=== PATIENT | male | born 1965 | race African-American/Black ===

== ENCOUNTER 2016-09-14 09:29 | Inpatient (IN) | payer OTHER ==
[2016-09-14 10:33] VITALS: BMI 26.4
--- NOTE | 2016-09-14 13:01 | HP ---
COWS - Scale Resting Pulse: 0= [place] 80 or Below Sweatin= Chills/Flushing Restless Observation: 3= Extraneous Movement Pupil Size: 2= Moderately Dilated Bone or Joint Aches: 4=Acute Joint/Muscle Pain Runny Nose/ Eye Tearin= Nasal Congestion GI Upset > 30mins: 1= Stomach Cramp Tremor Observation: 2= Slight Tremor Visible Yawning Observation: 2= >3x During Session Anxiety or Irritability: 2=Irritable/Anxious Goose Flesh Skin: 0=Smooth Skin COWS Score: 18 Admission ROS BHS - HPI Chief Complaint: DETOX TX FOR HEROIN DEPENDENCE Allergies/Adverse Reactions: Allergies Allergy/AdvReac Type Severity Reaction Status Date / Time PENICILIN Allergy Severe TREMORS Uncoded 09/14/16 11:20 History of Present Illness: 51 Y/O MALE WITH A HX OF HEROIN DEPENDENCE SEEKING DETOX TX Exam Limitations: No Limitations - Ebola screening Have you traveled outside of the country in the last 21 days: No Have you had contact with anyone from an Ebola affected area: No Have you been sick,other than usual withdrawal symptoms: No - Review of Systems Constitutional: Chills, Loss of Appetite, Night Sweats, Changes in sleep EENT: reports: Tearing, Nose Congestion, Dental Problems (MISSING TEETH/DECAY) Respiratory: reports: No Symptoms reported Cardiac: reports: No Symptoms Reported GI: reports: Constipated, Diarrhea, Nausea, Vomiting : reports: No Symptoms Reported Musculoskeletal: reports: Back Pain, Muscle Pain Integumentary: reports: No Symptoms Reported Neuro: reports: No Symptoms reported Endocrine: reports: No Symptoms Reported Hematology: reports: No Symptoms Reported Psychiatric: reports: Orientated x3, Agitated, Anxious, Depressed Other Systems: Reviewed and Negative Patient History - Patient Medical History Hx Anemia: No Hx Asthma: No Hx Chronic Obstructive Pulmonary Disease (COPD): No Hx Cardiac Disorders: No Hx Hypertension: No Hx Hypercholesterolemia: No HX Cerebrovascular Accident: No Hx Seizures: No Hx Diabetes: No Hx Gastrointestinal Disorders: No Hx Genitourinary Disorders: No Hx Sexually Transmitted Disorders: No Hx Renal Disease (ESRD): No Hx Thyroid Disease: No Hx Human Immunodeficiency Virus (HIV): No (NEGATIVE HX) Hx Hepatitis C: No Hx Depression: Yes (NO MED) Hx Suicide Attempt: No Hx Schizophrenia: No - Patient Surgical History Past Surgical History: No Hx Neurologic Surgery: No Hx Cataract Extraction: No Hx Cardiac Surgery: No Hx Lung Surgery: No Hx Breast Surgery: No Hx Breast Biopsy: No Hx Abdominal Surgery: No Hx Appendectomy: No Hx Cholecystectomy: No Hx Genitourinary Surgery: No Hx Orthopedic Surgery: No Anesthesia Reaction: No - PPD History Previous Implant?: Yes Documented Results: Negative w/o proof PPD to be Administered?: Yes - Reproductive History Patient is a Female of Child Bearing Age (11 -55 yrs old): No (MALE) - Smoking Cessation Smoking history: Current every day smoker Have you smoked in the past 12 months: Yes Aproximately how many cigarettes per day: 10 Hx Chewing Tobacco Use: No Initiated information on smoking cessation: Yes 'Breaking Loose' booklet given: 09/14/16 - Substance & Tx. History Hx Substance Use: Yes (HEROIN/COCAINE/MARIJUANA) Substance Use Type: Cocaine, Heroin, Marijuana Hx Substance Use Treatment: Yes - Substances Abused Heroin Route: Inhalation Frequency: Daily Amount used: 8-10 bags Age of first use: 31 Date of Last Use: 09/14/16 Crack Route: Smoking Frequency: Daily Amount used: $100 Age of first use: 18 Date of Last Use: 09/13/16 Marijuana Route: Smoking Frequency: Daily Amount used: $25 Age of first use: 18 Date of Last Use: 09/13/16 Family Disease History - Family Disease History Family History: Denies Admission Physical Exam [facility] - Vital Signs Vital Signs: Vital Signs - 24 hr 09/14/16 10:32 Temperature 96.8 F L Pulse Rate 65 Respiratory 18 Rate Blood Pressure 114/70 - Physical General Appearance: Yes: Moderate Distress, Irritable, Anxious HEENTM: Yes: EOMI, Normocephalic, ALONZO, Pharynx Normal Respiratory: Yes: Chest Non-Tender, Lungs Clear, Normal Breath Sounds, No Respiratory Distress Neck: Yes: Supple, Trachea in good position Breast: Yes: Breast Exam Deferred Cardiology: Yes: Regular Rhythm, Regular Rate, S1, S2 Abdominal: Yes: Normal Bowel Sounds, Non Tender, Soft Genitourinary: Yes: Other (N/C) Back: Yes: Within Normal Limits Musculoskeletal: Yes: full range of Motion, Gait Steady Extremities: Yes: Normal Range of Motion, Non-Tender Neurological: Yes: service desk specialist II-XII NML intact, Fully Oriented, Alert, Motor Strength 5/5 Integumentary: Yes: Dry, Warm Lymphatic: Yes: Within Normal Limits - Diagnostic (1) Opioid dependence with withdrawal Current Visit: Yes Status: Acute (2) Cocaine dependence with withdrawal Current Visit: Yes Status: Acute (3) Cannabis dependence, uncomplicated Current Visit: Yes Status: Acute (4) History of depression Current Visit: Yes Status: Chronic Cleared for Admission [facility] - Detox or Rehab [facility] Level of Care: Medically Managed Detox Regimen/Protocol: Methadone [facility] Breath Alcohol Content Breath Alcohol Content: 0 Urine Drug Screen - Results Drug Screen Negative: No Urine Drug Screen Results: THC-Marijuana, JOSIE-Cocaine, OPI-Opiates
[2016-09-14] MEDS ORDERED: MAG HYDROX/AL HYDROX/SIMETH 30 ML UNIT-DOSE CUP PO PRN (13:16)
[2016-09-14] MEDS ORDERED: NICOTINE POLACRILEX 2 MG GUM BUC PRN (13:16)
[2016-09-14] MEDS ORDERED: MAGNESIUM CITRATE 300 ML BOTTLE PO PRN (13:16)
[2016-09-14] MEDS ORDERED: diazePAM 5 MG TABLET PO PRN (13:16)
[2016-09-14] MEDS ORDERED: hydrOXYzine PAMOATE 25 MG CAPSULE (FP) PO PRN (13:16)
[2016-09-14] MEDS ORDERED: LOPERAMIDE HCL 2 MG CAPSULE PO PRN (13:16)
[2016-09-14] MEDS ORDERED: MAGNESIUM HYDROX 2400MG/30ML ORAL SUSPENSION 30 ML CUP PO PRN (13:16)
[2016-09-14] MEDS ORDERED: P-EPHED 60MG/TRIPROLIDI 2.5MG TABLET PO PRN (13:16)
[2016-09-14] MEDS ORDERED: guaiFENesin/D-METHORPHAN HB 10 ML UNIT-DOSE CUPS PO PRN (13:16)
[2016-09-14] MEDS ORDERED: MENTHOL/PHENOL 1 EACH UD MM PRN (13:16)
[2016-09-14] MEDS ORDERED: diphenhydrAMINE HCL 50 MG CAPSULE PO PRN (13:16)
[2016-09-14] MEDS ORDERED: METHADONE HCL 10 MG TABLET (FOR DETOX USE ONLY) PO ONE ×2 (14:23→23:00)
[2016-09-14] MEDS: NICOTINE 14 MG/24 HOURS TOPICAL PATCH TD SCH (15:02)
[2016-09-14 15:09] LABS: HIV 1 & 2 AB NEGATIVE; HIV 1 AGp24 NEGATIVE
[2016-09-14] MEDS: IBUPROFEN 400 MG TABLET (FP) PO PRN (17:07)
[2016-09-14] MEDS: ACETAMINOPHEN 325 MG TABLET (FP) PO PRN (21:06)
[2016-09-14 22:33] LABS: URINE APPEARANCE CLEAR; URINE BILIRUBIN NEGATIVE (NEGATIVE); URINE BLOOD NEGATIVE (NEGATIVE); URINE COLOR YELLOW; URINE GLUCOSE (UA) NEGATIVE (NEGATIVE); URINE KETONE NEGATIVE (NEGATIVE); URINE LEUK ESTERASE NEGATIVE (NEGATIVE); URINE NITRITE NEGATIVE (NEGATIVE); URINE PROTEIN NEGATIVE (NEGATIVE); URINE UROBILINOGEN NEGATIVE E.U./dl (0.2-1.0)
[2016-09-14] MEDS: THIAMINE HCL 100 MG TABLET (FP) PO SCH (22:50)
[2016-09-15] MEDS: IBUPROFEN 400 MG TABLET (FP) PO PRN (06:04)
[2016-09-15] MEDS ORDERED: METHADONE HCL 10 MG TABLET (FOR DETOX USE ONLY) PO ONE (10:00)
--- NOTE | 2016-09-15 10:10 | EKG ---
Test Reason : Blood Pressure : / mmHG Vent. Rate : 066 BPM Atrial Rate : 066 BPM P-R Int : 148 ms QRS Dur : 090 ms QT Int : 392 ms P-R-T Axes : 057 060 051 degrees QTc Int : 410 ms NORMAL SINUS RHYTHM NORMAL ECG NO PREVIOUS ECGS AVAILABLE Confirmed by YOSEF SAHU MD ([id number]) on 09/15/2016 10:10:14 AM Referred By: Confirmed By:YOSEF SAHU MD
[2016-09-15] MEDS: PRENATAL VITAMINS W/ FOLIC ACID TABLET (FP) PO SCH (10:31)
[2016-09-15] MEDS: NICOTINE 14 MG/24 HOURS TOPICAL PATCH TD SCH (10:32)
[2016-09-15 10:34] LABS: MCH 31.2 pg (25.7-33.7); MEAN CELL VOLUME 94.7 fl (80-96); MEAN PLT VOLUME 8.8 fl (7.5-11.1); PLATELET COUNT 303 K/MM3 (134-434); RDW 15.5 % (11.9-15.9)
[2016-09-15 10:59] LABS: SICKLE CELL SCREEN NEGATIVE (NEGATIVE)
[2016-09-15 11:21] LABS: ALBUMIN 2.9 g/dl (3.4-5.0); ALK PHOS 67 U/L (45-117); ANION GAP 8 (8-16); BILIRUBIN,TOTAL 0.1 mg/dL (0.2-1.0); CALCIUM 8.4 mg/dL (8.5-10.1); CO2 25 mmol/L (21-32); COCKROFT - GAULT 121.02; CREATININE 0.9 mg/dL (0.7-1.3); GLUCOSE,RANDOM 74 mg/dL (74-106); SGOT/AST 17 U/L (15-37); SGPT/ALT 18 U/L (12-78); TOT PROT 6.4 g/dl (6.4-8.2)
--- NOTE | 2016-09-15 12:34 | CONSULT ---
[facility] Psychiatric Consult - Data Date of interview: 09/15/16 Admission source: [facility] Identifying data: This is 51 years old male with no psychiatric hospitalization history nintoxicAted with: Heroin Cocaine and Cannabis Substance Abuse History: - Substances Abused. Heroin. Route: Inhalation. Frequency: Daily. Amount used: 8-10 bags. Age of first use: 31. Date of Last Use: 09/14/16. Crack. Route: Smoking. Frequency: Daily. Amount used: $ 100. Age of first use: 18. Date of Last Use: 09/13/16. Marijuana. Route: Smoking. Frequency: Daily. Amount used: $25. Age of first use: 18. Date of Last Use: 09/13/16 Medical History: Denies Psychiatric History: Patient denies past psychiatric history Physical/Sexual Abuse/Trauma History: Denies Additional Comment: Observation. Detox Unit Care Protocol Mental Status Exam - Mental Status Exam Alert and Oriented to: Person Cognitive Function: Fair Patient Appearance: Well Groomed Mood: Apprehensive Affect: Mood Congruent Patient Behavior: Cooperative Speech Pattern: Appropriate Voice Loudness: Normal Thought Process: Goal Oriented Thought Disorder: Being Controlled Hallucinations: Denies Suicidal Ideation: Denies Homicidal Ideation: Denies Insight/Judgement: Fair Sleep: Difficulty falling asleep Appetite: Fair Muscle strength/Tone: Normal Gait/Station: Normal Additional Comments: Observation. Detox Unit Care Protocol Psychiatric Findings - Problem List ([place] 1, 2,3) (1) Cannabis dependence, uncomplicated Current Visit: Yes Status: Acute (2) Cocaine dependence with withdrawal Current Visit: Yes Status: Acute (3) Opioid dependence with withdrawal Current Visit: Yes Status: Acute (4) Drug-induced mood disorder Current Visit: Yes Status: Suspected - Initial Treatment Plan Initial Treatment Plan: Observation. Detox Unit Care Protocol
--- NOTE | 2016-09-15 14:09 | PN ---
S COWS - Scale Resting Pulse: 0= [place] 80 or Below Sweatin=Flushed/Facial Moisture Restless Observation: 1= Difficult to Sit Still Pupil Size: 0= Normal to Room Light Bone or Joint Aches: 2= Severe Diffuse Aches Runny Nose/ Eye Tearin= Runny Nose/Eyes GI Upset > 30mins: 2= Nausea/Diarrhea Tremor Observation of Outstretched Hands: 2= Slight Tremor Visible Yawning Observation: 0= None Anxiety or Irritability: 2=Irritable/Anxious Goose Flesh Skin: 3=Piloerection COWS Score: 16 BHS Progress Note (SOAP) Subjective: sweats, shakes, abdominal cramps Objective: 09/15/16 14:08 Vital Signs - 8 hr 09/15/16 09/15/16 06:48 09:49 Temperature 96.8 F L 97.2 F L Pulse Rate 64 68 Respiratory 18 18 Rate Blood Pressure 135/78 110/76 Laboratory Last Values WBC 7.0 K/mm3 (4.0-10.0) 09/15/16 06:16 RBC 3.98 M/mm3 (4.00-5.60) L 09/15/16 06:16 Hgb 12.4 GM/dL (11.7-16.9) 09/15/16 06:16 Hct 37.7 % (35.4-49) 09/15/16 06:16 MCV 94.7 fl (80-96) 09/15/16 06:16 MCHC 33.0 g/dl (32.0-35.9) 09/15/16 06:16 RDW 15.5 % (11.9-15.9) 09/15/16 06:16 Plt Count 303 K/MM3 (134-434) 09/15/16 06:16 MPV 8.8 fl (7.5-11.1) 09/15/16 06:16 Sickle Cell Screen Negative (NEGATIVE) 09/15/16 06:16 Sodium 143 mmol/L (136-145) 09/15/16 06:16 Potassium 4.4 mmol/L (3.5-5.1) 09/15/16 06:16 Chloride 110 mmol/L (98-107) H 09/15/16 06:16 Carbon Dioxide 25 mmol/L (21-32) 09/15/16 06:16 Anion Gap 8 (8-16) 09/15/16 06:16 BUN 16 mg/dL (7-18) 09/15/16 06:16 Creatinine 0.9 mg/dL (0.7-1.3) 09/15/16 06:16 Creat Clearance w eGFR > 60 (>60) 09/15/16 06:16 Random Glucose 74 mg/dL (74-106) 09/15/16 06:16 Calcium 8.4 mg/dL (8.5-10.1) L 09/15/16 06:16 Total Bilirubin 0.1 mg/dL (0.2-1.0) L 09/15/16 06:16 AST 17 U/L (15-37) 09/15/16 06:16 ALT 18 U/L (12-78) 09/15/16 06:16 Alkaline Phosphatase 67 U/L (45-117) 09/15/16 06:16 Total Protein 6.4 g/dl (6.4-8.2) 09/15/16 06:16 Albumin 2.9 g/dl (3.4-5.0) L 09/15/16 06:16 Urine Color Yellow 09/14/16 13:00 Urine Appearance Clear 09/14/16 13:00 Urine pH 5.0 (5.0-8.0) 09/14/16 13:00 Ur Specific [place] 1.023 (1.001-1.035) 09/14/16 13:00 Urine Protein Negative (NEGATIVE) 09/14/16 13:00 Urine Glucose (UA) Negative (NEGATIVE) 09/14/16 13:00 Urine Ketones Negative (NEGATIVE) 09/14/16 13:00 Urine Blood Negative (NEGATIVE) 09/14/16 13:00 Urine Nitrite Negative (NEGATIVE) 09/14/16 13:00 Urine Bilirubin Negative (NEGATIVE) 09/14/16 13:00 Urine Urobilinogen Negative E.U./dl (0.2-1.0) 09/14/16 13:00 Ur Leukocyte Esterase Negative (NEGATIVE) 09/14/16 13:00 RPR Titer Nonreactive (NONREACTIVE) 09/15/16 06:16 HIV 1&2 Antibody Screen Negative 09/14/16 12:10 HIV P24 Antigen Negative 09/14/16 12:10 labs noted Assessment: 09/15/16 14:09 withdrawal sx Plan: continue detox
--- NOTE | 2016-09-15 19:50 | DS ---
[facility] Detox Discharge Summary Admission Date: 09/14/16 Discharge Date: 09/15/16 - History Present History: Cannabis Dependence, Opioid Dependence - Physical Exam Results Vital Signs: Vital Signs Temperature 98.1 F 09/15/16 14:59 Pulse Rate 62 09/15/16 14:59 Respiratory Rate 18 09/15/16 14:59 Blood Pressure 119/70 09/15/16 14:59 O2 Sat by Pulse Oximetry (%) Pertinent Admission Physical Exam Findings: withdrawal sx - Medication Discharge Medications: Ambulatory Orders NK [No Known Home Medication] 09/14/16 - Diagnosis (1) Cannabis dependence, uncomplicated Current Visit: Yes Status: Acute (2) Cocaine dependence with withdrawal Current Visit: Yes Status: Acute (3) Opioid dependence with withdrawal Current Visit: Yes Status: Acute (4) History of depression Current Visit: Yes Status: Chronic - AMA Did Patient Leave Against Medical Advice: No (Administrative d/c, destroyed property (bed))
[2016-09-15] MEDS: THIAMINE HCL 100 MG TABLET (FP) PO SCH (23:15)
[2016-09-16] MEDS ORDERED: METHADONE HCL 5 MG TABLET (FOR DETOX USE ONLY) PO ONE (10:00)
[2016-09-16] MEDS: PRENATAL VITAMINS W/ FOLIC ACID TABLET (FP) PO SCH (10:31)
[2016-09-16] MEDS: NICOTINE 14 MG/24 HOURS TOPICAL PATCH TD SCH (10:32)
[2016-09-16 11:04] LABS: URINE APPEARANCE CLEAR; URINE BILIRUBIN NEGATIVE (NEGATIVE); URINE BLOOD NEGATIVE (NEGATIVE); URINE COLOR STRAW; URINE GLUCOSE (UA) NEGATIVE (NEGATIVE); URINE KETONE NEGATIVE (NEGATIVE); URINE LEUK ESTERASE NEGATIVE (NEGATIVE); URINE NITRITE NEGATIVE (NEGATIVE); URINE PROTEIN NEGATIVE (NEGATIVE); URINE UROBILINOGEN NEGATIVE E.U./dl (0.2-1.0)
[2016-09-16] MEDS: ACETAMINOPHEN 325 MG TABLET (FP) PO PRN ×2 (11:35→23:00)
--- NOTE | 2016-09-16 16:22 | PN ---
BHS COWS - Scale Resting Pulse: 0= [place] 80 or Below Sweatin= Chills/Flushing Restless Observation: 3= Extraneous Movement Pupil Size: 0= Normal to Room Light Bone or Joint Aches: 2= Severe Diffuse Aches Runny Nose/ Eye Tearin= Runny Nose/Eyes GI Upset > 30mins: 1= Stomach Cramp Tremor Observation of Outstretched Hands: 0= None Yawning Observation: 1= 1-2x During Session Anxiety or Irritability: 2=Irritable/Anxious Goose Flesh Skin: 0=Smooth Skin COWS Score: 12 BHS Progress Note (SOAP) Subjective: Anxious, sweating, LBP, interrupted sleep Objective: 09/16/16 16:21 Laboratory Tests 09/14/16 09/14/16 09/15/16 12:10 13:00 06:16 WBC 7.0 RBC 3.98 L Hgb 12.4 Hct 37.7 MCV 94.7 MCHC 33.0 RDW 15.5 Plt Count 303 MPV 8.8 Sickle Cell Screen Negative Sodium Potassium Chloride Carbon Dioxide Anion Gap BUN Creatinine Creat Clearance w eGFR Random Glucose Calcium Total Bilirubin AST ALT Alkaline Phosphatase Total Protein Albumin Urine Color Yellow Urine Appearance Clear Urine pH 5.0 Ur Specific [place] 1.023 Urine Protein Negative Urine Glucose (UA) Negative Urine Ketones Negative Urine Blood Negative Urine Nitrite Negative Urine Bilirubin Negative Urine Urobilinogen Negative Ur Leukocyte Esterase Negative RPR Titer HIV 1&2 Antibody Screen Negative HIV P24 Antigen Negative 09/15/16 09/15/16 09/16/16 06:16 06:16 10:00 WBC RBC Hgb Hct MCV MCHC RDW Plt Count MPV Sickle Cell Screen Sodium 143 Potassium 4.4 Chloride 110 H Carbon Dioxide 25 Anion Gap 8 BUN 16 Creatinine 0.9 Creat Clearance w eGFR > 60 Random Glucose 74 Calcium 8.4 L Total Bilirubin 0.1 L AST 17 ALT 18 Alkaline Phosphatase 67 Total Protein 6.4 Albumin 2.9 L Urine Color Straw Urine Appearance Clear Urine pH 7.0 D Ur Specific [place] 1.011 Urine Protein Negative Urine Glucose (UA) Negative Urine Ketones Negative Urine Blood Negative Urine Nitrite Negative Urine Bilirubin Negative Urine Urobilinogen Negative Ur Leukocyte Esterase Negative RPR Titer Nonreactive HIV 1&2 Antibody Screen HIV P24 Antigen Labs noted Assessment: 09/16/16 16:21 Withdrawal symptoms Plan: Continue detox
[2016-09-16] MEDS: THIAMINE HCL 100 MG TABLET (FP) PO SCH (22:47)
[2016-09-17] MEDS ORDERED: METHADONE HCL 5 MG TABLET (FOR DETOX USE ONLY) PO ONE (10:00)
[2016-09-17] MEDS: PRENATAL VITAMINS W/ FOLIC ACID TABLET (FP) PO SCH (10:20)
[2016-09-17] MEDS: NICOTINE 14 MG/24 HOURS TOPICAL PATCH TD SCH (10:21)
[2016-09-17] MEDS: ACETAMINOPHEN 325 MG TABLET (FP) PO PRN (10:22)
--- NOTE | 2016-09-17 11:32 | PN ---
[facility] Progress Note Note: Psychiatry Attending's note : Approached by patient. Complaint : insomnia. Chart reviewed.Dr Russ's note is appreciated. Intervention : Education about virtues of sleep hygiene. Zolpidem 10 mg po hs.Side effects/benefits discussed. Mr Casper is made aware of risk of parasomnias. He agrees with this careplan.
--- NOTE | 2016-09-17 14:48 | PN ---
BHS Progress Note (SOAP) Subjective: Sweating,interrupted sleep,restless,tremors, Objective: 09/17/16 14:48 Vital Signs - 8 hr 09/17/16 09/17/16 09:54 14:14 Temperature 97.0 F L Pulse Rate 78 77 Respiratory 18 22 Rate Blood Pressure 99/65 110/68 Laboratory Last Values WBC 7.0 K/mm3 (4.0-10.0) 09/15/16 06:16 RBC 3.98 M/mm3 (4.00-5.60) L 09/15/16 06:16 Hgb 12.4 GM/dL (11.7-16.9) 09/15/16 06:16 Hct 37.7 % (35.4-49) 09/15/16 06:16 MCV 94.7 fl (80-96) 09/15/16 06:16 MCHC 33.0 g/dl (32.0-35.9) 09/15/16 06:16 RDW 15.5 % (11.9-15.9) 09/15/16 06:16 Plt Count 303 K/MM3 (134-434) 09/15/16 06:16 MPV 8.8 fl (7.5-11.1) 09/15/16 06:16 Sickle Cell Screen Negative (NEGATIVE) 09/15/16 06:16 Sodium 143 mmol/L (136-145) 09/15/16 06:16 Potassium 4.4 mmol/L (3.5-5.1) 09/15/16 06:16 Chloride 110 mmol/L (98-107) H 09/15/16 06:16 Carbon Dioxide 25 mmol/L (21-32) 09/15/16 06:16 Anion Gap 8 (8-16) 09/15/16 06:16 BUN 16 mg/dL (7-18) 09/15/16 06:16 Creatinine 0.9 mg/dL (0.7-1.3) 09/15/16 06:16 Creat Clearance w eGFR > 60 (>60) 09/15/16 06:16 Random Glucose 74 mg/dL (74-106) 09/15/16 06:16 Calcium 8.4 mg/dL (8.5-10.1) L 09/15/16 06:16 Total Bilirubin 0.1 mg/dL (0.2-1.0) L 09/15/16 06:16 AST 17 U/L (15-37) 09/15/16 06:16 ALT 18 U/L (12-78) 09/15/16 06:16 Alkaline Phosphatase 67 U/L (45-117) 09/15/16 06:16 Total Protein 6.4 g/dl (6.4-8.2) 09/15/16 06:16 Albumin 2.9 g/dl (3.4-5.0) L 09/15/16 06:16 Urine Color Straw 09/16/16 10:00 Urine Appearance Clear 09/16/16 10:00 Urine pH 7.0 (5.0-8.0) D 09/16/16 10:00 Ur Specific [place] 1.011 (1.001-1.035) 09/16/16 10:00 Urine Protein Negative (NEGATIVE) 09/16/16 10:00 Urine Glucose (UA) Negative (NEGATIVE) 09/16/16 10:00 Urine Ketones Negative (NEGATIVE) 09/16/16 10:00 Urine Blood Negative (NEGATIVE) 09/16/16 10:00 Urine Nitrite Negative (NEGATIVE) 09/16/16 10:00 Urine Bilirubin Negative (NEGATIVE) 09/16/16 10:00 Urine Urobilinogen Negative E.U./dl (0.2-1.0) 09/16/16 10:00 Ur Leukocyte Esterase Negative (NEGATIVE) 09/16/16 10:00 RPR Titer Nonreactive (NONREACTIVE) 09/15/16 06:16 HIV 1&2 Antibody Screen Negative 09/14/16 12:10 HIV P24 Antigen Negative 09/14/16 12:10 labs noted Assessment: 09/17/16 14:48 Withdrawal sx. Plan: Continue detox
[2016-09-17] MEDS: THIAMINE HCL 100 MG TABLET (FP) PO SCH (22:37)
[2016-09-17] MEDS: ZOLPIDEM TARTRATE 10 MG TABLET (PARK CARE ONLY) PO PRN (22:39)
[2016-09-18] MEDS ORDERED: METHADONE HCL 10 MG TABLET (FOR DETOX USE ONLY) PO ONE (10:00)
[2016-09-18] MEDS: PRENATAL VITAMINS W/ FOLIC ACID TABLET (FP) PO SCH (10:20)
[2016-09-18] MEDS: NICOTINE 14 MG/24 HOURS TOPICAL PATCH TD SCH (10:20)
--- NOTE | 2016-09-18 10:45 | DS ---
[facility] Detox Discharge Summary Admission Date: 09/14/16 - History Present History: Cannabis Dependence, Cocaine Dependence, Opioid Dependence Additional Comments: DECREASED ANXIETY,SWEATS,IRRITABILITY. - Physical Exam Results Vital Signs: Vital Signs Temperature 96.4 F L 09/18/16 09:34 Pulse Rate 79 09/18/16 09:34 Respiratory Rate 18 09/18/16 09:34 Blood Pressure 110/68 09/18/16 09:34 O2 Sat by Pulse Oximetry (%) - Medication Discharge Medications: Ambulatory Orders NK [No Known Home Medication] 09/14/16 - Diagnosis (1) Opioid dependence with withdrawal Current Visit: Yes Status: Acute (2) Cocaine dependence with withdrawal Current Visit: Yes Status: Acute (3) Cannabis dependence, uncomplicated Current Visit: Yes Status: Acute (4) History of depression Current Visit: Yes Status: Chronic
--- NOTE | 2016-09-18 10:46 | PN ---
BHS Progress Note (SOAP) Subjective: DECREASED ANXIETY,SWEATS,IRRITABILITY. Objective: 09/18/16 10:46 Vital Signs Temperature 96.4 F L 09/18/16 09:34 Pulse Rate 79 09/18/16 09:34 Respiratory Rate 18 09/18/16 09:34 Blood Pressure 110/68 09/18/16 09:34 O2 Sat by Pulse Oximetry (%) Assessment: 09/18/16 10:46 WITHDRAWAL SX Plan: CONTINUE DETOX
[2016-09-18] MEDS: HYDROCORTISONE 1% TOPICAL CREAM 30 GM TUBE TP SCH ×2 (14:38→22:23)
[2016-09-18] MEDS: BACITRACIN 0.9 GM PACKET TP SCH ×2 (14:38→22:23)
[2016-09-18] MEDS: THIAMINE HCL 100 MG TABLET (FP) PO SCH (22:22)
[2016-09-18] MEDS: ZOLPIDEM TARTRATE 10 MG TABLET (PARK CARE ONLY) PO PRN (22:24)
[2016-09-19] MEDS ORDERED: METHADONE HCL 5 MG TABLET (FOR DETOX USE ONLY) PO ONE (06:00)
[2016-09-19] MEDS: PRENATAL VITAMINS W/ FOLIC ACID TABLET (FP) PO SCH (10:27)
[2016-09-19] MEDS: HYDROCORTISONE 1% TOPICAL CREAM 30 GM TUBE TP SCH ×2 (10:27→22:53)
[2016-09-19] MEDS: NICOTINE 14 MG/24 HOURS TOPICAL PATCH TD SCH (10:27)
[2016-09-19] MEDS: BACITRACIN 0.9 GM PACKET TP SCH ×2 (10:28→22:50)
[2016-09-19] MEDS: THIAMINE HCL 100 MG TABLET (FP) PO SCH (22:50)
[2016-09-19] MEDS: ZOLPIDEM TARTRATE 10 MG TABLET (PARK CARE ONLY) PO PRN (22:51)
[2016-09-20 09:21] VITALS: BP 112/74; PULSE 91; TEMP 96.9
[2016-09-20] MEDS: BACITRACIN 0.9 GM PACKET TP SCH (09:42)
[2016-09-20] MEDS: NICOTINE 14 MG/24 HOURS TOPICAL PATCH TD SCH (09:43)
[2016-09-20] MEDS: PRENATAL VITAMINS W/ FOLIC ACID TABLET (FP) PO SCH (09:43)
[2016-09-20] MEDS: HYDROCORTISONE 1% TOPICAL CREAM 30 GM TUBE TP SCH (09:43)
--- NOTE | 2016-09-20 11:20 | PN ---
S Progress Note Note: PT'S REHAB ADMISSION AVAILABLE TODAY. BED WAS NOT AVAILABLE YESTERDAY SCHEDULED EARLIER.
--- NOTE | 2016-09-20 11:23 | DS ---
[facility] Detox Discharge Summary Admission Date: 09/14/16 Discharge Date: 09/20/16 - History Present History: Cannabis Dependence, Cocaine Dependence, Opioid Dependence Additional Comments: DETOX COMPLETED. ALERT O X 3. NAD. Pertinent Past History: DENIES PMHx DEPRESSION HX - Physical Exam Results Vital Signs: Vital Signs Temperature 96.9 F L 09/20/16 09:20 Pulse Rate 91 H 09/20/16 09:20 Respiratory Rate 20 09/20/16 09:20 Blood Pressure 112/74 09/20/16 09:20 O2 Sat by Pulse Oximetry (%) Pertinent Admission Physical Exam Findings: WITHDRAWAL SX Laboratory Last Values WBC 7.0 K/mm3 (4.0-10.0) 09/15/16 06:16 RBC 3.98 M/mm3 (4.00-5.60) L 09/15/16 06:16 Hgb 12.4 GM/dL (11.7-16.9) 09/15/16 06:16 Hct 37.7 % (35.4-49) 09/15/16 06:16 MCV 94.7 fl (80-96) 09/15/16 06:16 MCHC 33.0 g/dl (32.0-35.9) 09/15/16 06:16 RDW 15.5 % (11.9-15.9) 09/15/16 06:16 Plt Count 303 K/MM3 (134-434) 09/15/16 06:16 MPV 8.8 fl (7.5-11.1) 09/15/16 06:16 Sickle Cell Screen Negative (NEGATIVE) 09/15/16 06:16 Sodium 143 mmol/L (136-145) 09/15/16 06:16 Potassium 4.4 mmol/L (3.5-5.1) 09/15/16 06:16 Chloride 110 mmol/L (98-107) H 09/15/16 06:16 Carbon Dioxide 25 mmol/L (21-32) 09/15/16 06:16 Anion Gap 8 (8-16) 09/15/16 06:16 BUN 16 mg/dL (7-18) 09/15/16 06:16 Creatinine 0.9 mg/dL (0.7-1.3) 09/15/16 06:16 Creat Clearance w eGFR > 60 (>60) 09/15/16 06:16 Random Glucose 74 mg/dL (74-106) 09/15/16 06:16 Calcium 8.4 mg/dL (8.5-10.1) L 09/15/16 06:16 Total Bilirubin 0.1 mg/dL (0.2-1.0) L 09/15/16 06:16 AST 17 U/L (15-37) 09/15/16 06:16 ALT 18 U/L (12-78) 09/15/16 06:16 Alkaline Phosphatase 67 U/L (45-117) 09/15/16 06:16 Total Protein 6.4 g/dl (6.4-8.2) 09/15/16 06:16 Albumin 2.9 g/dl (3.4-5.0) L 09/15/16 06:16 Urine Color Straw 09/16/16 10:00 Urine Appearance Clear 09/16/16 10:00 Urine pH 7.0 (5.0-8.0) D 09/16/16 10:00 Ur Specific [place] 1.011 (1.001-1.035) 09/16/16 10:00 Urine Protein Negative (NEGATIVE) 09/16/16 10:00 Urine Glucose (UA) Negative (NEGATIVE) 09/16/16 10:00 Urine Ketones Negative (NEGATIVE) 09/16/16 10:00 Urine Blood Negative (NEGATIVE) 09/16/16 10:00 Urine Nitrite Negative (NEGATIVE) 09/16/16 10:00 Urine Bilirubin Negative (NEGATIVE) 09/16/16 10:00 Urine Urobilinogen Negative E.U./dl (0.2-1.0) 09/16/16 10:00 Ur Leukocyte Esterase Negative (NEGATIVE) 09/16/16 10:00 RPR Titer Nonreactive (NONREACTIVE) 09/15/16 06:16 HIV 1&2 Antibody Screen Negative 09/14/16 12:10 HIV P24 Antigen Negative 09/14/16 12:10 - Treatment Hospital Course: Detox Protocol Followed, Detoxed Safely, Responded well, Discharged Condition Good, Rehab Referral Accepted Patient has Accepted a Rehab Referral to: [address] [facility] - Medication Discharge Medications: Ambulatory Orders NK [No Known Home Medication] 09/14/16 - Diagnosis (1) Opioid dependence with withdrawal Current Visit: Yes Status: Acute (2) Cocaine dependence with withdrawal Current Visit: Yes Status: Acute (3) Cannabis dependence, uncomplicated Current Visit: Yes Status: Acute (4) History of depression Current Visit: Yes Status: Chronic (5) Drug-induced mood disorder Current Visit: Yes Status: Suspected - AMA Did Patient Leave Against Medical Advice: No
== END 2016-09-20 12:12 | disposition other institution (70) | DRG 773 ==
LOC: YASAS 09:29 → Y3N 12:47
PROVIDERS: ADMIT Internal Medicine; ATTEND Internal Medicine
PROC: HZ2ZZZZ Detoxification Services for Substance Abuse Treatment (ICD-10-PCS; principal; 2016-09-14)
DX: F11.23 Opioid dependence with withdrawal (principal); F14.20 Cocaine dependence, uncomplicated; F12.20 Cannabis dependence, uncomplicated; F19.24 Other psychoactive substance dependence with psychoactive substance-induced mood disorder; F32.9 Major depressive disorder, single episode, unspecified
CPT/HCPCS: 36415; 80053; 81003; 85027; 85660; 86593; 87389; 93005; 93010

== ENCOUNTER 2016-09-20 12:34 | Inpatient (IN) | payer OTHER ==
[2016-09-20 12:53] VITALS: BMI 26.4
[2016-09-20] MEDS ORDERED: guaiFENesin/D-METHORPHAN HB 10 ML UNIT-DOSE CUPS PO PRN (13:26)
[2016-09-20] MEDS ORDERED: MAGNESIUM CITRATE 300 ML BOTTLE PO PRN (13:26)
[2016-09-20] MEDS ORDERED: MAG HYDROX/AL HYDROX/SIMETH 30 ML UNIT-DOSE CUP PO PRN (13:26)
[2016-09-20] MEDS ORDERED: P-EPHED 60MG/TRIPROLIDI 2.5MG TABLET PO PRN (13:26)
[2016-09-20] MEDS ORDERED: ACETAMINOPHEN 325 MG TABLET (FP) PO PRN (13:26)
[2016-09-20] MEDS ORDERED: diphenhydrAMINE HCL 50 MG CAPSULE PO PRN (13:26)
[2016-09-20] MEDS ORDERED: MENTHOL/PHENOL 1 EACH UD MM PRN (13:26)
[2016-09-20] MEDS ORDERED: MAGNESIUM HYDROX 2400MG/30ML ORAL SUSPENSION 30 ML CUP PO PRN (13:26)
[2016-09-20] MEDS ORDERED: LOPERAMIDE HCL 2 MG CAPSULE PO PRN (13:26)
[2016-09-20] MEDS ORDERED: NICOTINE POLACRILEX 2 MG GUM BUC PRN (13:26)
--- NOTE | 2016-09-20 14:04 | HP ---
Psychiatrist Admission - Data Date of interview: 09/20/16 Admission source: 3N Identifying data: This is the first [facility] admission for this 51 years old single Black male, father of 8 children, unemployed with no source of income, homeless living with friends Medical History: Unremakable Psychiatric History: Reports that his first psychiatric contact was in 2004 at [facility] substance OPD. There he was diagnosed with Bipolar Disorder and prescribed Depakote, Xanax and another medication which he does not recall name. After a year, he became lost to follow up and did not resume psychiatric treatment till 2010 when he started seeing a psychiatrist at [facility] in [place] and was prescibed him same medications. He attended that clinic for only a year and has not had any psychiatric care since. Denies previous psychiatric admission or suicidal attempt. At present, reports doing well. He shows no evidence of overt psychosis, chen or depression. Denies suicidal, homicidal ideations Physical/Sexual Abuse/Trauma History: Denies history of emotional, physical or sexual abuse as well as DV relationship Additional Comment: Reports history of multiple arrests including 2 felony convictions. Denies being on parole/probation at present Vital Signs: Vital Signs - 24 hr 09/20/16 12:44 Temperature 98.9 F Pulse Rate 96 H Respiratory 20 Rate Blood Pressure 123/58 Allergies/Adverse Reactions: Allergies Allergy/AdvReac Type Severity Reaction Status Date / Time penicillin V Allergy Severe TREMORS Verified 09/20/16 12:38 PENICILIN Allergy Severe TREMORS Uncoded 09/20/16 12:38 Date of last physical exam: 09/14/16 Concur with the findings of this exam: Yes - Substance Abuse/Tx History Hx Substance Use: Yes Substance Use Type: Cocaine (Started smoking crack cocaine at age 18, consumes $ 100 worth daily. Last smoked 09/13/16), Heroin (Started using heroin at age 31, consumes 8-10 bags daily. Last used on 09/14/16), Marijuana (Started smoking marijuana at age 18, consumes $25 worth daily. Last smoked on 09/13/16) Hx Substance Use Treatment: Yes (5-6 previous inpt detox and 5-6 inpt rehab) - Admission Criteria Previous failed treatment: Yes Poor recovery environment: Yes Lacks judgement: Yes Mental Status Exam - Mental Status Exam Alert and Oriented to: Time, Place, Person Cognitive Function: Fair Patient Appearance: Well Groomed Mood: Hopeful, Euthymic Affect: Appropriate Patient Behavior: Cooperative Speech Pattern: Clear Voice Loudness: Normal Thought Process: Intact Thought Disorder: Not Present Hallucinations: Denies Suicidal Ideation: Denies Homicidal Ideation: Denies Insight/Judgement: Fair Sleep: Fair Appetite: Good Muscle strength/Tone: Normal Gait/Station: Normal Psychiatric Findings - Problem List ([place] 1, 2,3) (1) Opioid dependence with withdrawal Current Visit: No Status: Acute (2) Cocaine dependence with withdrawal Current Visit: No Status: Acute (3) Cannabis dependence, uncomplicated Current Visit: No Status: Acute (4) Substance induced mood disorder Current Visit: Yes Status: Acute (5) Bipolar disorder Current Visit: Yes Status: Ruled-out - Initial Treatment Plan Initial Treatment Plan: Monitor progress
--- NOTE | 2016-09-20 16:26 | HP ---
[facility] Rehab Assess/Revision - Admission History Admitted to Rehab from: [facility] Date of Admission to Rehab: 09/20/16 - Vital signs Vital Signs: Vital Signs Period Temp Pulse Resp BP Sys/Borrego Pulse Ox Last 24 Hr 98.9 F 96 20 123/58 - Findings Detox History & Physical reviewed: Yes Concur with findings: Yes Comments/Additional Findings: transferred from detox to rehab admission as per protocol
[2016-09-20] MEDS: THIAMINE HCL 100 MG TABLET (FP) PO SCH (21:32)
[2016-09-21] MEDS: NICOTINE 14 MG/24 HOURS TOPICAL PATCH TD SCH (09:50)
[2016-09-21] MEDS: PRENATAL VITAMINS W/ FOLIC ACID TABLET (FP) PO SCH (10:48)
[2016-09-21] MEDS: IBUPROFEN 400 MG TABLET (FP) PO PRN (21:43)
[2016-09-21] MEDS: THIAMINE HCL 100 MG TABLET (FP) PO SCH (21:44)
[2016-09-22] MEDS: PRENATAL VITAMINS W/ FOLIC ACID TABLET (FP) PO SCH (09:59)
[2016-09-22] MEDS: NICOTINE 14 MG/24 HOURS TOPICAL PATCH TD SCH (09:59)
[2016-09-22] MEDS: THIAMINE HCL 100 MG TABLET (FP) PO SCH (21:34)
[2016-09-22] MEDS: IBUPROFEN 400 MG TABLET (FP) PO PRN (21:34)
[2016-09-23] MEDS: PRENATAL VITAMINS W/ FOLIC ACID TABLET (FP) PO SCH (09:55)
[2016-09-23] MEDS: IBUPROFEN 400 MG TABLET (FP) PO PRN ×2 (09:55→21:40)
[2016-09-23] MEDS: NICOTINE 14 MG/24 HOURS TOPICAL PATCH TD SCH (09:57)
[2016-09-23] MEDS: THIAMINE HCL 100 MG TABLET (FP) PO SCH (21:40)
[2016-09-24] MEDS: NICOTINE 14 MG/24 HOURS TOPICAL PATCH TD SCH (09:37)
[2016-09-24] MEDS: IBUPROFEN 400 MG TABLET (FP) PO PRN ×2 (09:38→22:01)
[2016-09-24] MEDS: PRENATAL VITAMINS W/ FOLIC ACID TABLET (FP) PO SCH (09:38)
--- NOTE | 2016-09-24 11:59 | PN ---
Psychiatric Progress Note Vital Signs: Vital Signs Period Temp Pulse Resp BP Sys/Borrego Pulse Ox Last 24 Hr 97.1 F 67-99 16-18 105-112/64-68 Date of Session: 09/24/16 Chief Complaint:: Anxiety HPI: Patient addressing Opoid, Cocaine and Cannabis Dependence comorbid with Substance-Induced Mood Disorder Current Medications: Active Medications Generic Name Dose Route Start Last Admin Trade Name Freq PRN Reason Stop Dose Admin Acetaminophen 650 mg 09/20/16 13:26 Tylenol - PO Q4H PRN FEVER OR PAIN Al Hydroxide/Mg Hydroxide 30 ml 09/20/16 13:26 Mylanta Oral Suspension - PO Q6H PRN DYSPEPSIA Diphenhydramine HCl 50 mg 09/20/16 13:26 Benadryl - PO HSMR1 PRN FOR ITCHING Eucalyptus/Menthol/Phenol/Sorbitol 1 each 09/20/16 13:26 Cepastat Lozenge - MM Q4H PRN SORE THROAT Guaifenesin 10 ml 09/20/16 13:26 Robitussin Dm - PO Q6H PRN COUGH Hydrocortisone 1 applic 09/20/16 13:27 Hytone 1% Cream - TP BID PRN DRY SKIN Hydroxyzine Pamoate 50 mg 09/24/16 11:15 Vistaril - PO Q6H PRN ANXIETY Ibuprofen 400 mg 09/20/16 13:26 09/24/16 09:38 Motrin - PO 400 mg Q6H PRN Administration PAIN Loperamide HCl 4 mg 09/20/16 13:26 Imodium - PO Q6H PRN DIARRHEA Magnesium Hydroxide 30 ml 09/20/16 13:26 Milk Of Magnesia - PO DAILY PRN CONSTIPATION Nicotine 14 mg 09/21/16 10:00 09/24/16 09:37 Nicoderm Patch - TD Not Given DAILY SELINA Nicotine Polacrilex 2 mg 09/20/16 13:26 Nicorette Gum - BUC Q2H PRN NICOTINE REPLACEMENT RX Multivit/Folic Acid/Iron 1 tab 09/21/16 10:00 09/24/16 09:38 Vitamins (Sjr) - PO 1 tab DAILY SELINA Administration Pseudoephedrine/Triprolidine 1 combo 09/20/16 13:26 Actifed - PO TID PRN NASAL CONGESTION Thiamine HCl 100 mg 09/20/16 22:00 09/23/16 21:40 Vitamin B1 - PO 100 mg HS SELINA Administration Medication(s) Change(s): Start Vistaril 50 mg po Q 4hrs prn for anxiety Current Side Effect: No Lab tests ordered: Yes Lab tests reviewed: Yes Provider note:: Patient reports that he has been feeling anxious and requests to have medication ordered. Anxiolytic properties as well as adverse-effects of Vistaril were discussed with patient and he agreed to try it Total face to face time:: 25 Mental Status Exam - Mental Status Exam Alert and Oriented to: Time, Place, Person Cognitive Function: Fair Patient Appearance: Well Groomed Mood: Anxious Affect: Appropriate Patient Behavior: Cooperative Speech Pattern: Clear Voice Loudness: Normal Thought Process: Intact Thought Disorder: Not Present Hallucinations: Denies Suicidal Ideation: Denies Homicidal Ideation: Denies Insight/Judgement: Fair Sleep: Poorly Appetite: Good Muscle strength/Tone: Normal Gait/Station: Normal Psychiatric Treatment Plan - Problem List (1) Opioid dependence with withdrawal Current Visit: No (2) Cocaine dependence with withdrawal Current Visit: No (3) Cannabis dependence, uncomplicated Current Visit: No (4) Substance induced mood disorder Current Visit: Yes (5) Bipolar disorder Current Visit: Yes Initial treatment plan: 1) Start Vistaril 50 mg po Q 4hrs prn for anxiety. 2) Monitor progress
[2016-09-24] MEDS: THIAMINE HCL 100 MG TABLET (FP) PO SCH (22:01)
[2016-09-24] MEDS: hydrOXYzine PAMOATE 50 MG CAPSULE (FP) PO PRN (22:03)
[2016-09-24] MEDS: HYDROCORTISONE 1% TOPICAL CREAM 30 GM TUBE TP PRN (22:04)
[2016-09-25] MEDS ORDERED: PT OWN MED DRAWER 7, Y5N ONE ×3 (09:55→22:01)
[2016-09-25] MEDS: IBUPROFEN 400 MG TABLET (FP) PO PRN ×2 (09:55→18:01)
[2016-09-25] MEDS: HYDROCORTISONE 1% TOPICAL CREAM 30 GM TUBE TP PRN ×2 (09:56→21:46)
[2016-09-25] MEDS: PRENATAL VITAMINS W/ FOLIC ACID TABLET (FP) PO SCH (09:58)
[2016-09-25] MEDS: NICOTINE 14 MG/24 HOURS TOPICAL PATCH TD SCH (09:58)
[2016-09-25] MEDS: THIAMINE HCL 100 MG TABLET (FP) PO SCH (21:45)
[2016-09-25] MEDS: hydrOXYzine PAMOATE 50 MG CAPSULE (FP) PO PRN (21:46)
[2016-09-25] MEDS: METHYL SALICYLATE/MENTHOL OINT 30 GM TUBE TP SCH (21:46)
[2016-09-25] MEDS: TOLNAFTATE 1% CREAM 15 GM TUBE TP SCH (21:48)
[2016-09-26] MEDS: PRENATAL VITAMINS W/ FOLIC ACID TABLET (FP) PO SCH (09:45)
[2016-09-26] MEDS: METHYL SALICYLATE/MENTHOL OINT 30 GM TUBE TP SCH ×2 (09:45→21:45)
[2016-09-26] MEDS: TOLNAFTATE 1% CREAM 15 GM TUBE TP SCH ×2 (09:46→21:45)
[2016-09-26] MEDS: NICOTINE 14 MG/24 HOURS TOPICAL PATCH TD SCH (09:46)
[2016-09-26] MEDS: IBUPROFEN 400 MG TABLET (FP) PO PRN ×2 (09:46→21:46)
[2016-09-26] MEDS: hydrOXYzine PAMOATE 50 MG CAPSULE (FP) PO PRN (21:45)
[2016-09-26] MEDS: THIAMINE HCL 100 MG TABLET (FP) PO SCH (21:45)
[2016-09-26] MEDS ORDERED: PT OWN MED DRAWER 7, Y5N ONE (21:48)
[2016-09-27] MEDS: PRENATAL VITAMINS W/ FOLIC ACID TABLET (FP) PO SCH (09:55)
[2016-09-27] MEDS: hydrOXYzine PAMOATE 50 MG CAPSULE (FP) PO PRN ×2 (09:55→21:41)
[2016-09-27] MEDS: IBUPROFEN 400 MG TABLET (FP) PO PRN ×2 (09:55→21:41)
[2016-09-27] MEDS: NICOTINE 14 MG/24 HOURS TOPICAL PATCH TD SCH (09:56)
[2016-09-27] MEDS: LIDOCAINE 5% TOPICAL PATCH TP SCH (09:56)
[2016-09-27] MEDS: METHYL SALICYLATE/MENTHOL OINT 30 GM TUBE TP SCH ×2 (09:56→21:42)
[2016-09-27] MEDS: TOLNAFTATE 1% CREAM 15 GM TUBE TP SCH ×2 (09:56→21:44)
[2016-09-27] MEDS ORDERED: PT OWN MED DRAWER 7, Y5N ONE (21:42)
[2016-09-27] MEDS: THIAMINE HCL 100 MG TABLET (FP) PO SCH (21:43)
[2016-09-28] MEDS ORDERED: PT OWN MED DRAWER 7, Y5N ONE (08:41)
[2016-09-28] MEDS: PRENATAL VITAMINS W/ FOLIC ACID TABLET (FP) PO SCH (10:02)
[2016-09-28] MEDS: IBUPROFEN 400 MG TABLET (FP) PO PRN (10:02)
[2016-09-28] MEDS: TOLNAFTATE 1% CREAM 15 GM TUBE TP SCH ×2 (10:03→23:45)
[2016-09-28] MEDS: NICOTINE 14 MG/24 HOURS TOPICAL PATCH TD SCH (10:04)
[2016-09-28] MEDS: METHYL SALICYLATE/MENTHOL OINT 30 GM TUBE TP SCH ×2 (10:04→23:45)
[2016-09-28] MEDS: LIDOCAINE 5% TOPICAL PATCH TP SCH (10:47)
[2016-09-28] MEDS: THIAMINE HCL 100 MG TABLET (FP) PO SCH (23:45)
[2016-09-29] MEDS: LIDOCAINE 5% TOPICAL PATCH TP SCH (09:53)
[2016-09-29] MEDS: IBUPROFEN 400 MG TABLET (FP) PO PRN ×2 (09:53→21:46)
[2016-09-29] MEDS: PRENATAL VITAMINS W/ FOLIC ACID TABLET (FP) PO SCH (09:54)
[2016-09-29] MEDS: NICOTINE 14 MG/24 HOURS TOPICAL PATCH TD SCH (09:54)
[2016-09-29] MEDS: METHYL SALICYLATE/MENTHOL OINT 30 GM TUBE TP SCH ×2 (09:54→21:47)
[2016-09-29] MEDS: TOLNAFTATE 1% CREAM 15 GM TUBE TP SCH ×2 (09:55→22:15)
[2016-09-29] MEDS: THIAMINE HCL 100 MG TABLET (FP) PO SCH (21:45)
[2016-09-29] MEDS: hydrOXYzine PAMOATE 50 MG CAPSULE (FP) PO PRN (21:45)
[2016-09-29] MEDS ORDERED: PT OWN MED DRAWER 7, Y5N ONE (21:47)
[2016-09-30] MEDS ORDERED: PT OWN MED DRAWER 7, Y5N ONE (08:30)
[2016-09-30] MEDS: LIDOCAINE 5% TOPICAL PATCH TP SCH (09:47)
[2016-09-30] MEDS: TOLNAFTATE 1% CREAM 15 GM TUBE TP SCH ×2 (09:47→22:47)
[2016-09-30] MEDS: PRENATAL VITAMINS W/ FOLIC ACID TABLET (FP) PO SCH (09:47)
[2016-09-30] MEDS: METHYL SALICYLATE/MENTHOL OINT 30 GM TUBE TP SCH ×2 (09:47→22:47)
[2016-09-30] MEDS: NICOTINE 14 MG/24 HOURS TOPICAL PATCH TD SCH (09:47)
[2016-09-30] MEDS: IBUPROFEN 400 MG TABLET (FP) PO PRN ×2 (09:48→21:35)
[2016-09-30] MEDS: hydrOXYzine PAMOATE 50 MG CAPSULE (FP) PO PRN (21:34)
[2016-09-30] MEDS: THIAMINE HCL 100 MG TABLET (FP) PO SCH (21:34)
[2016-10-01] MEDS ORDERED: PT OWN MED DRAWER 7, Y5N ONE (08:42)
[2016-10-01] MEDS: IBUPROFEN 400 MG TABLET (FP) PO PRN (10:16)
[2016-10-01] MEDS: PRENATAL VITAMINS W/ FOLIC ACID TABLET (FP) PO SCH (10:16)
[2016-10-01] MEDS: METHYL SALICYLATE/MENTHOL OINT 30 GM TUBE TP SCH ×2 (10:17→22:24)
[2016-10-01] MEDS: LIDOCAINE 5% TOPICAL PATCH TP SCH (10:17)
[2016-10-01] MEDS: NICOTINE 14 MG/24 HOURS TOPICAL PATCH TD SCH (10:17)
[2016-10-01] MEDS: TOLNAFTATE 1% CREAM 15 GM TUBE TP SCH ×2 (10:17→22:24)
[2016-10-01] MEDS: THIAMINE HCL 100 MG TABLET (FP) PO SCH (22:25)
[2016-10-02] MEDS: PRENATAL VITAMINS W/ FOLIC ACID TABLET (FP) PO SCH (10:30)
[2016-10-02] MEDS: IBUPROFEN 400 MG TABLET (FP) PO PRN ×2 (10:31→21:12)
[2016-10-02] MEDS: LIDOCAINE 5% TOPICAL PATCH TP SCH (10:31)
[2016-10-02] MEDS: NICOTINE 14 MG/24 HOURS TOPICAL PATCH TD SCH (10:33)
[2016-10-02] MEDS: TOLNAFTATE 1% CREAM 15 GM TUBE TP SCH ×2 (10:33→23:37)
[2016-10-02] MEDS: METHYL SALICYLATE/MENTHOL OINT 30 GM TUBE TP SCH ×2 (10:33→21:12)
[2016-10-02] MEDS: THIAMINE HCL 100 MG TABLET (FP) PO SCH (21:11)
[2016-10-02] MEDS: hydrOXYzine PAMOATE 50 MG CAPSULE (FP) PO PRN (21:11)
[2016-10-02] MEDS ORDERED: PT OWN MED DRAWER 7, Y5N ONE (21:13)
[2016-10-03] MEDS: NICOTINE 14 MG/24 HOURS TOPICAL PATCH TD SCH (09:39)
[2016-10-03] MEDS: LIDOCAINE 5% TOPICAL PATCH TP SCH (09:39)
[2016-10-03] MEDS: PRENATAL VITAMINS W/ FOLIC ACID TABLET (FP) PO SCH (09:39)
[2016-10-03] MEDS: METHYL SALICYLATE/MENTHOL OINT 30 GM TUBE TP SCH ×2 (09:39→21:53)
[2016-10-03] MEDS: TOLNAFTATE 1% CREAM 15 GM TUBE TP SCH ×2 (09:40→21:53)
[2016-10-03] MEDS: IBUPROFEN 400 MG TABLET (FP) PO PRN ×2 (09:40→21:52)
[2016-10-03] MEDS: THIAMINE HCL 100 MG TABLET (FP) PO SCH (21:52)
[2016-10-04] MEDS: PRENATAL VITAMINS W/ FOLIC ACID TABLET (FP) PO SCH (09:44)
[2016-10-04] MEDS: IBUPROFEN 400 MG TABLET (FP) PO PRN ×2 (09:44→21:03)
[2016-10-04] MEDS: LIDOCAINE 5% TOPICAL PATCH TP SCH (09:44)
[2016-10-04] MEDS: METHYL SALICYLATE/MENTHOL OINT 30 GM TUBE TP SCH ×2 (09:44→22:54)
[2016-10-04] MEDS: TOLNAFTATE 1% CREAM 15 GM TUBE TP SCH ×2 (09:45→22:55)
[2016-10-04] MEDS: NICOTINE 14 MG/24 HOURS TOPICAL PATCH TD SCH (09:45)
[2016-10-04] MEDS: THIAMINE HCL 100 MG TABLET (FP) PO SCH (21:03)
[2016-10-05 06:41] VITALS: BP 106/63; PULSE 76; TEMP 98.4
--- NOTE | 2016-10-05 09:10 | PN ---
Psychiatric Progress Note Vital Signs: Vital Signs Period Temp Pulse Resp BP Sys/Borrego Pulse Ox Last 24 Hr 98.4 F 76 18-18 106/63 Date of Session: 10/05/16 Chief Complaint:: Discharge Note HPI: Patient addressing Opoid, Cocaine and Cannabis Dependence comorbid with Substance-Induced Mood Disorder Current Medications: Active Medications Generic Name Dose Route Start Last Admin Trade Name Freq PRN Reason Stop Dose Admin Acetaminophen 650 mg 09/20/16 13:26 Tylenol - PO Q4H PRN FEVER OR PAIN Al Hydroxide/Mg Hydroxide 30 ml 09/20/16 13:26 Mylanta Oral Suspension - PO Q6H PRN DYSPEPSIA Diphenhydramine HCl 50 mg 09/20/16 13:26 Benadryl - PO HSMR1 PRN FOR ITCHING Eucalyptus/Menthol/Phenol/Sorbitol 1 each 09/20/16 13:26 Cepastat Lozenge - MM Q4H PRN SORE THROAT Guaifenesin 10 ml 09/20/16 13:26 Robitussin Dm - PO Q6H PRN COUGH Hydrocortisone 1 applic 09/20/16 13:27 09/25/16 21:46 Hytone 1% Cream - TP 1 applic BID PRN Administration DRY SKIN Hydroxyzine Pamoate 50 mg 09/24/16 11:15 10/02/16 21:11 Vistaril - PO 50 mg Q6H PRN Administration ANXIETY Ibuprofen 400 mg 09/20/16 13:26 10/04/16 21:03 Motrin - PO 400 mg Q6H PRN Administration PAIN Lidocaine 1 patch 09/27/16 10:00 10/04/16 09:44 Lidoderm Patch - TP 1 patch DAILY SELINA Administration Loperamide HCl 4 mg 09/20/16 13:26 Imodium - PO Q6H PRN DIARRHEA Magnesium Hydroxide 30 ml 09/20/16 13:26 Milk Of Magnesia - PO DAILY PRN CONSTIPATION Methyl Salicylate 1 applic 09/25/16 22:00 10/04/16 22:54 Ezequiel-Castañeda - TP Not Given BID SELINA Nicotine 14 mg 09/21/16 10:00 10/04/16 09:45 Nicoderm Patch - TD Not Given DAILY SELINA Nicotine Polacrilex 2 mg 09/20/16 13:26 Nicorette Gum - BUC Q2H PRN NICOTINE REPLACEMENT RX Multivit/Folic Acid/Iron 1 tab 09/21/16 10:00 10/04/16 09:44 Vitamins (Sjr) - PO 1 tab DAILY SELINA Administration Pseudoephedrine/Triprolidine 1 combo 09/20/16 13:26 Actifed - PO TID PRN NASAL CONGESTION Thiamine HCl 100 mg 09/20/16 22:00 10/04/16 21:03 Vitamin B1 - PO 100 mg HS SELINA Administration Tolnaftate 1 applic 09/25/16 22:00 10/04/16 22:55 Tinactin 1% Cream - TP Not Given BID SELINA Current Side Effect: No Lab tests ordered: Yes Lab tests reviewed: Yes Provider note:: Patient has completed this program today. he has met his treatment goals and will continue to address his issues in outpatient treatment at [facility] at [address] [place] [address]. He verbalized understanding of the negative consequences of his addiction and he recognized the importance of establishing a sober support network in order to maintain sobriety. He is stable for discharge today Total face to face time:: 35 Mental Status Exam - Mental Status Exam Alert and Oriented to: Time, Place, Person Cognitive Function: Fair Mood: Hopeful, Euthymic Affect: Appropriate Patient Behavior: Cooperative Speech Pattern: Clear, Artificially Ventilated Thought Process: Intact, Goal Oriented Thought Disorder: Not Present Hallucinations: Denies Suicidal Ideation: Denies Homicidal Ideation: Denies Insight/Judgement: Fair Sleep: Fair Appetite: Good Muscle strength/Tone: Normal Gait/Station: Normal Psychiatric Treatment Plan - Problem List (1) Opioid dependence with withdrawal Current Visit: No (2) Cocaine dependence with withdrawal Current Visit: No (3) Cannabis dependence, uncomplicated Current Visit: No (4) Substance induced mood disorder Current Visit: Yes (5) Bipolar disorder Current Visit: Yes Initial treatment plan: Patient is discharged today and referred to [facility] for outpatient treatment
[2016-10-05] MEDS: PRENATAL VITAMINS W/ FOLIC ACID TABLET (FP) PO SCH (10:02)
[2016-10-05] MEDS: TOLNAFTATE 1% CREAM 15 GM TUBE TP SCH (10:03)
[2016-10-05] MEDS: METHYL SALICYLATE/MENTHOL OINT 30 GM TUBE TP SCH (10:03)
[2016-10-05] MEDS: LIDOCAINE 5% TOPICAL PATCH TP SCH (10:03)
[2016-10-05] MEDS: NICOTINE 14 MG/24 HOURS TOPICAL PATCH TD SCH (10:03)
[2016-10-05] MEDS ORDERED: PT OWN MED DRAWER 7, Y5N ONE (10:06)
== END 2016-10-05 10:08 | disposition home or self-care (01) | DRG 772 ==
LOC: YASAS 12:34 → Y3W 12:35
PROVIDERS: ADMIT Psychiatry & Neurology Psychiatry; ATTEND Psychiatry & Neurology Psychiatry
PROC: HZ42ZZZ Group Counseling for Substance Abuse Treatment, Cognitive-Behavioral (ICD-10-PCS; principal; 2016-10-05)
DX: F11.23 Opioid dependence with withdrawal (principal); F14.23 Cocaine dependence with withdrawal; F12.20 Cannabis dependence, uncomplicated; F19.24 Other psychoactive substance dependence with psychoactive substance-induced mood disorder; F31.9 Bipolar disorder, unspecified
CPT/HCPCS: 72100-TC; 73030-TC-LT